=== PATIENT | female | born 1945 | race Caucasian/White ===

== ENCOUNTER 2017-04-05 18:43 | Emergency (ER) | payer MEDICARE ==
[2017-04-05] MEDS ORDERED: NORMAL SALINE 1,000 ML IV ONE (19:23)
[2017-04-05] MEDS ORDERED: KETOROLAC TROMETHAMINE 30 MG/ML VIAL IV ONE (19:23)
--- NOTE | 2017-04-05 19:23 | ERNOTE ---
Back Pain ER HPI Date of Service: 04/05/17 Presenting Symptoms: other - idiopathic back pain x 1 week Time Seen by Provider: 04/05/17 18:55 Source: patient Exam Limitations: no limitations Immunizations: IMMUNIZATION HX Immunizations Up to Date Yes History of Influenza Vaccine No Allergies/Adverse Reactions: Allergies Penicillins Allergy (Verified 04/05/17 18:52) Home Medications: HOME MEDICATIONS Simvastatin [Zocor] 10 mg PO DAILY 09/14/12 [Last Taken Unknown] Citalopram Hydrobromide [Celexa] 40 mg PO DAILY 11/07/12 [Last Taken Unknown] Naproxen [Naprosyn] 500 mg PO BID PRN #60 tab 04/05/17 [Last Taken Unknown] Narrative: Pt. comes in with back pain that radiates to BLQ abdomen x 1 week. Pt. denies any fevers, SOB, CP, NVD, dysuria or hematuria. Pt. denies any recent illness or injury. Pt. denies any aggravating factors or alleviaitn gfactors depite taking Tylenol for the pain. Review of Systems - Review of Systems Constitutional: Present: no symptoms reported. Absent: recent illness, fever, chills, weakness, fatigue, malaise EYE: Present: no symptoms reported ENT: Present: no symptoms reported Respiratory: Present: no symptoms reported. Absent: shortness of breath, cough , wheezing Cardiology: Present: no symptoms reported. Absent: chest pain, palpitations, edema Gastrointestinal/Abdominal: Present: no symptoms reported. Absent: nausea, vomiting, diarrhea, abdominal pain Genitourinary: Present: no symptoms reported Musculoskeletal: Present: back pain - B flank Skin: Present: no symptoms reported Neurological: Present: no symptoms reported. Absent: headache, dizziness/light- headedness, numbness, tingling All Other Systems: All systems neg except as marked - Patient's Past Medical History Patient History - Medical: Arthritis, Depression Patient History - Cardiac/Respiratory: No pertinent hx, Hyperlipidemia Patient History - Cancer: No Hx of Cancer Patient History - Surgical Procedures: Cholecystectomy, Other Patient History - Other: None - Social History Living Situations: home Abuse History: No History of abuse Psych History: No pertinent hx Smoking Status: Never smoker Patient requests Smoking Cessation Consult: No Initiate information on Smoking Cessation: No Alcohol Use: none Drug Use: none - Immunizations Immunizations Up to Date: Yes History of Influenza Vaccine: No Physical Exam - Physical Exam General Appearance: Present: wd/wn, alert, no apparent distress Head Exam: Present: normal inspection, no evidence of injury Eye Exam: Normal inspection: bilateral, PERRL: bilateral, EOMI: bilateral Ears, Nose, Throat: Present: normal ENT inspection, normal pharynx Neck: Present: normal inspection, nontender. Absent: lymphadenopathy (R), lymphadenopathy (L) Respiratory: Present: no respiratory distress, normal breath sounds, no accessory muscle use, chest nontender, lungs clear Cardiovascular/Chest: Present: regular rate, rhythm, no murmur, normal peripheral pulses Gastrointestinal/Abdominal: Present: normal bowel sounds, nondistended, soft, no organomegaly, tenderness - BLQ suprapubic. Absent: rebound Back Exam: Present: normal inspection, normal range of motion, CVA tenderness (R ), CVA tenderness (L) Extremity Exam: Present: normal inspection Neurological Exam: Present: alert, oriented, normal mood/affect, no motor/ sensory deficits, negative restorer II-XII nml as tested, normal cerebellar test Skin Exam: Present: normal color, warm/dry. Absent: pallor, skin rash ED Progress - Results and Orders Patient's Lab Results:: I have reviewed the patient's lab results. - Vital Signs Patient's Vital Signs:: I have reviewed the patient's vital signs. Vital Signs: Vital Signs 04/05/17 18:46 Temperature 36.8 C Pulse Rate 77 Respiratory 20 Rate Blood Pressure 173/75 O2 Sat by Pulse 97 Oximetry - CT/Ultrasound CT/Ultrasound Narrative: CT with evidence of calcification evidence of degenerating leiomyoma - Progress/Reassessment Chief Complaint: Back Pain Departure Clinical Impression: Uterine fibroid Qualifiers: Uterine leiomyoma location: unspecified location Qualified Code(s): D25.9 - Leiomyoma of uterus, unspecified - Departure Disposition: Home self-care Condition: Good Instructions: Uterine Fibroids, [id number] Additional Instructions: Please follow up with your gynacologist next week to discuss need for further testing of fibroids. Referrals: Fabián Harper MD [Primary Care Provider] - Prescriptions: Naproxen [Naprosyn] 500 mg PO BID PRN #60 tab PRN Reason: Pain
[2017-04-05] MEDS ORDERED: KETOROLAC TROMETHAMINE 30 MG/ML VIAL ONE (19:24)
[2017-04-05 19:57] LABS: Urine Appearance Clear; Urine Bilirubin Negative (NEGATIVE); Urine Blood Negative /ul (NEGATIVE); Urine Color Yellow
[2017-04-05 19:58] LABS: Urine Bacteria None Seen; Urine Ketone 5 mg/dL (NEGATIVE); Urine Nitrite Negative (NEGATIVE); Urine Protein Negative (NEGATIVE); Urine RBC None Seen /hpf (0-5); Urine Urobilinogen Normal (NORMAL); Urine WBC 0-5 /hpf (0-5)
[2017-04-05 20:15] LABS: Hematocrit 39.2 % (37.0-47.0); Hemoglobin 13.5 gm/dL (12.5-16.0); Mean Cell Volume 94.5 fl (78-100); Mean Corpuscular Hemoglobin 32.5 pg (27-31); Mean Corpuscular Hgb Conc 34.4 g/dl (32-36); Mean Platelet Volume 9.7 fl (6.0-9.5); Neutrophil # 3.5 K/mm3 (1.3-6.0); Neutrophil % 53.1 % (42-75.0); Platelet Count 217 K/mm3 (150-450); Red Blood Count 4.15 M/mm3 (4.2-5.4); Red Cell Distribution Width 12.4 % (11.5-14.0); White Blood Count 6.7 K/mm3 (4.0-10.5)
[2017-04-05 20:28] LABS: Albumin * 3.1 gm/dl (3.4-5.0); Anion Gap 11.8 mmol/L (6.8-13.8); BUN/Creatinine Ratio 32.6 (9.0-21.6); Bilirubin, Total 0.2 mg/dL (0.0-1.1); Ca. Corrected For Albumin 8.8 mg/dL (8.4-10.2); Calcium * 8.4 mg/dL (7.9-10.9); Carbon Dioxide 28.2 mmol/L (24-32.6); Total Protein 6.1 gm/dL (6.2-8.2)
[2017-04-05 22:23] VITALS: BP 150/100
== END 2017-04-05 21:45 | disposition home or self-care (01) ==
LOC: ER 18:43
DX: D25.9 Leiomyoma of uterus, unspecified (principal)